=== PATIENT | male | born 1980 | race Caucasian/White ===

== ENCOUNTER 2019-11-02 15:20 | Emergency (ER) | payer OTHER ==
[~2019-11-02] VITALS: Ht 180.3 cm; Wt 86.2 kg
[2019-11-02] MEDS ORDERED: KETO10 PO (16:49)
== END 2019-11-02 16:57 | disposition home or self-care (01) ==
LOC: ER 15:20
DX: S01.01XA Laceration without foreign body of scalp, initial encounter (principal); S46.001A Unspecified injury of muscle(s) and tendon(s) of the rotator cuff of right shoulder, initial encounter; W22.8XXA Striking against or struck by other objects, initial encounter
CPT/HCPCS: 12002; 70450; 72125; 72128; 73030; 99284-25; A9270-GY; L0160